=== PATIENT | female | born 1945 | race Caucasian/White ===

== ENCOUNTER 2018-05-26 08:15 | Emergency (ER) | payer MEDICARE ==
[2018-05-26 08:56] VITALS: BP 156/82
--- NOTE | 2018-05-26 10:24 | UC ---
Complaint Female HPI - HPI Summary HPI Summary: uti since 4am - History Of Current Complaint Chief Complaint: UCGU Stated Complaint: URINARY COMPLAINT Time Seen by Provider: 05/26/18 09:07 Hx Obtained From: Patient Onset/Duration: Gradual Onset Timing: Constant Pain Intensity: 0 Aggravating Factor(s): Nothing Alleviating Factor(s): Nothing Associated Signs And Symptoms: Negative: Fever, Back Pain, Vaginal Discharge - Allergies/Home Medications Allergies/Adverse Reactions: Allergies Allergy/AdvReac Type Severity Reaction Status Date / Time No Known Allergies Allergy Verified 05/26/18 08:47 Home Medications: Home Medications Cranberry Conc/C/Bacill Coag [Azo Cranberry 250-30 mg] 2 tab PO ONCE PRN [History Confirmed 05/26/18] Magnesium Oxide [Magnesium] 400 mg PO DAILY 05/26/18 [History Confirmed 05/26/18 ] PMH/Surg Hx/FS Hx/Imm Hx - Additional Past Medical History Additional PMH: Allergies, Anxiety, Dylipidemia, GERD, uti - Surgical History Surgical History: Yes Surgery Procedure, Year, and Place: Right Breast Lumpectomy, 2011 - Family History Known Family History: Positive: Other - [place] - Social History Occupation: Retired Alcohol Use: None Substance Use Type: None Smoking Status (MU): Former Smoker Type: Cigarettes Amount Used/How Often: 1 PPD Length of Time of Smoking/Using Tobacco: 34 Years Have You Smoked in the Last Year: No When Did the Patient Quit Smoking/Using Tobacco: 1996 - Immunization History Most Recent Influenza Vaccination: 2013 Vaccination Up to Date: Yes Review of Systems Constitutional: Negative Skin: Negative Eyes: Negative ENT: Negative Respiratory: Negative Cardiovascular: Negative Gastrointestinal: Negative Genitourinary: Dysuria, Frequency, Urgency Motor: Negative Neurovascular: Negative Musculoskeletal: Negative Neurological: Negative Psychological: Negative Is Patient Immunocompromised?: No All Other Systems Reviewed And Are Negative: Yes Physical Exam Triage Information Reviewed: Yes Appearance: Well-Appearing Vital Signs: Initial Vital Signs Temp 97.3 F 05/26/18 08:49 Pulse 56 05/26/18 08:49 Resp 16 05/26/18 08:49 BP 156/82 05/26/18 08:49 Pulse Ox 100 05/26/18 08:49 Vital Signs Reviewed: Yes Eyes: Positive: Conjunctiva Clear ENT: Positive: Normal ENT inspection Neck: Positive: Supple, Nontender, No Lymphadenopathy Respiratory: Positive: Lungs clear, Normal breath sounds Cardiovascular: Positive: RRR, No Murmur Abdomen Description: Positive: Nontender, No Organomegaly, Soft Bowel Sounds: Positive: Present Musculoskeletal: Positive: ROM Intact Neurological: Positive: Alert Psychological: Positive: Age Appropriate Behavior Skin Exam: Normal Diagnostics - Laboratory Diagnostic Studies Completed/Ordered: no u/a due to AZO. cuture is pending Complaint Female Dx - Differential Dx/Diagnosis Provider Diagnoses: UTI Discharge - Sign-Out/Discharge Documenting (check all that apply): Patient Departure All imaging exams completed and their final reports reviewed: No Studies - Discharge Plan Condition: Stable Disposition: HOME Prescriptions: Sulfamethox/Trimethoprim DS* [Bactrim DS 800/160 TAB*] 1 tab PO BID 7 Days #14 tab Patient Education Materials: Dysuria (ED) Referrals: Pedro Roberto PA [Primary Care Provider] - 7 Days - Billing Disposition and Condition Condition: STABLE Disposition: Home
== END 2018-05-26 10:32 | disposition home or self-care (01) ==
LOC: UCCORT 08:15
DX: N39.0 Urinary tract infection, site not specified (principal); B96.20 Unspecified Escherichia coli [E. coli] as the cause of diseases classified elsewhere; Z87.891 Personal history of nicotine dependence
CPT/HCPCS: 87077; 87086; 87186; 99211; G0463

== ENCOUNTER 2018-10-07 10:32 | Emergency (ER) | payer MEDICARE ==
[2018-10-07 11:18] VITALS: BP 169/98
--- NOTE | 2018-10-07 12:49 | UC ---
Complaint Female HPI - HPI Summary HPI Summary: Patient has frequent UTIs she has symtpoms for the past day. - History Of Current Complaint Chief Complaint: UCGU Stated Complaint: URINARY Time Seen by Provider: 10/07/18 11:23 Hx Obtained From: Patient ?: No Onset/Duration: Sudden Onset, Lasting Days Timing: Constant Severity Initially: Mild Severity Currently: Mild Pain Intensity: 4 Character: Burning Aggravating Factor(s): Urination - Allergies/Home Medications Allergies/Adverse Reactions: Allergies Allergy/AdvReac Type Severity Reaction Status Date / Time No Known Allergies Allergy Verified 10/07/18 11:18 PMH/Surg Hx/FS Hx/Imm Hx Previously Healthy: Yes - Surgical History Surgical History: Yes Surgery Procedure, Year, and Place: Right Breast Lumpectomy, 2012 - Family History Known Family History: Positive: Other - [place] - Social History Alcohol Use: None Substance Use Type: None Smoking Status (MU): Former Smoker Type: Cigarettes Amount Used/How Often: 1 PPD Length of Time of Smoking/Using Tobacco: 34 Years Have You Smoked in the Last Year: No When Did the Patient Quit Smoking/Using Tobacco: 1996 - Immunization History Most Recent Influenza Vaccination: 2013 Vaccination Up to Date: Yes Review of Systems All Other Systems Reviewed And Are Negative: Yes Constitutional: Positive: Negative Skin: Positive: Negative Eyes: Positive: Negative ENT: Positive: Negative Respiratory: Positive: Negative Cardiovascular: Positive: Negative Gastrointestinal: Positive: Negative Genitourinary: Positive: Dysuria Motor: Positive: Negative Neurovascular: Positive: Negative Musculoskeletal: Positive: Negative Neurological: Positive: Negative Psychological: Positive: Negative Is Patient Immunocompromised?: No Physical Exam Triage Information Reviewed: Yes Appearance: Well-Appearing, Well-Nourished, Pain Distress Vital Signs: Initial Vital Signs Temp 97.8 F 10/07/18 11:14 Pulse 91 10/07/18 11:14 Resp 16 10/07/18 11:14 BP 169/98 10/07/18 11:14 Pulse Ox 99 10/07/18 11:14 Vital Signs Reviewed: Yes Eye Exam: Normal ENT Exam: Normal ENT: Positive: Pharyngeal erythema, TMs normal Dental Exam: Normal Neck exam: Normal Neck: Positive: Supple, Nontender, No Lymphadenopathy Respiratory Exam: Normal Respiratory: Positive: Chest non-tender, Lungs clear, Normal breath sounds Cardiovascular Exam: Normal Cardiovascular: Positive: RRR, No Murmur, Pulses Normal Abdominal Exam: Normal Abdomen Description: Positive: Nontender, No Organomegaly, Soft, CVA Tenderness (R) - neg, CVA Tenderness (L) - neg Musculoskeletal Exam: Normal Neurological Exam: Normal Psychological Exam: Normal Skin Exam: Normal Complaint Female Dx - Course Course Of Treatment: hx obtained, exam performed ,meds reviewed, reviewed old chart and microbio lab results. she is seen by a urologist as well duee to frequenty UTI's, does have bladder leakage issue. no back pain or fever. - Differential Dx/Diagnosis Differential Diagnosis/HQI/PQRI: Urinary Tract Infection Provider Diagnosis: UTI (urinary tract infection) Discharge - Sign-Out/Discharge Documenting (check all that apply): Patient Departure All imaging exams completed and their final reports reviewed: No Studies - Discharge Plan Condition: Stable Disposition: HOME Prescriptions: Sulfamethox/Trimethoprim DS* [Bactrim DS 800/160 TAB*] 1 tab PO BID #14 tab Patient Education Materials: Urinary Tract Infection in Women (ED) Referrals: Pedro Roberto PA [Primary Care Provider] - Additional Instructions: 1. take the medication as prescribed. 2. Increase clear fluid intake and follow up with DR Woodward as needed. - Billing Disposition and Condition Condition: STABLE Disposition: Home
== END 2018-10-07 11:44 | disposition home or self-care (01) ==
LOC: UCCORT 10:32
DX: N39.0 Urinary tract infection, site not specified (principal); B96.20 Unspecified Escherichia coli [E. coli] as the cause of diseases classified elsewhere; Z87.891 Personal history of nicotine dependence
CPT/HCPCS: 81003; 87077; 87086; 87186; 99212; G0463

== ENCOUNTER 2019-01-12 10:37 | Emergency (ER) | payer MEDICARE ==
--- OUTSIDE RECORDS SUMMARY | 2019-01-12 11:03 | XMS REPORT | Continuity of Care Document ---
:1945 External Reference #:[id number] Author Name Girish Medina MD Address [address] [place] [address] Care Team Providers Name Role Phone Jeannie Roberto PA Care Team Information Commercial Loan Assistant Unavailable Jeannie Roberto PA Primary Care Physician Unavailable Payers Date Identification Numbers Payment Provider Subscriber Policy Number: [id number] Medicare Krupa Moore PayID: [id number] [address] [place] [address] Policy Number: [id number] [facility] Krupa Moore PayID: [id number] [address] [place] [address] Advance Directives Description No Information Available Problems Active Problems Provider Date Diverticulitis of colon Julien Capps M.D. Onset: 12/27/2013 Family history of malignant neoplasm Julien Capps M.D. Onset: 12/27/2013 of gastrointestinal tract Family History Date Family Member(s) Observation Comments General Breast Cancer Father due to [place] () : (age 80 Years) Father due to Heart Attack Mother due to Cancer () Mother due to Diabetes () Mother due to Hypertension () : (age 79 Years) Mother due to Heart Failure Children 2 sons First Son Alive First Son cataracts First Sister Breast Cancer Social History Type Date Description Comments Sex Unknown Marital Status Lives With Spouse Diet Patient follows no dietary restrictions Occupation Retired Tobacco Use Start: Unknown End: Former Cigarette Smoker Unknown ETOH Use Denies alcohol use Tobacco Use Start: Unknown End: Patient is a former smoked 1 to 1 1/2 Unknown smoker ppd x 30 + years . Quit 22 years ago Recreational Drug Use Never Used Drugs Smoking Status Reviewed: 11/28/18 Patient is a former smoked 1 to 1 1/2 smoker ppd x 30 + years . Quit 22 years ago Exercise Type/Frequency Exercises regularly Allergies, Adverse Reactions, Alerts Description No Known Drug Allergies Medications Active Medications SIG Qnty Indications Ordering Date Provider Ofloxacin 1 drop right eye 1units H25.813 Girish Medina MD 01/02/2019 (Ophthalmic) four times daily 0.3% for 10 days Solution beginning three days prior to the operation Prednisolone Acetate 1 drop right eye 5ml H25.813 Girish Medina MD 2018 1% four times daily Suspension for four weeks; please begin after surgery Ketorolac 1 drop operative 5units H25.813 Girish Medina MD 01/02/2019 Tromethamine eye 4 times daily 0.5% for 2 weeks; Solution please begin 3 days prior to operation Cranberry Fruit sig 1 po bid Unknown Concentrate High Potency [id number] Capsules Venlafaxine HCL ER TK One C PO Daily Unknown 150mg Caps ER 24HR Magnesium 1 by mouth every Unknown 400mg Tablets day Aspir-81 1 by mouth every Unknown 81mg Tablets day DR Ranitidine 150 1 by mouth twice a Unknown Maximum Strength day 150mg Tablets Losartan Potassium 1 by mouth every Unknown day 100mg Tablets Metformin HCL 1 by mouth twice a Unknown 500mg day Tablets Allergy Relief 1 po qhs Unknown 25mg Tablets Atorvastatin Calcium 1 by mouth every Unknown day 40mg Tablets Metoprolol Tartrate 1 po bid 30tabs Unknown 25mg Tablets History Medications Augmentin 1 po bid 30tabs Kadyeimani, 12/19/2013 - 875-125mg Julien Mcgovern, Unknown Tablets M.D. Metronidazole 1 po bid 45tabs Moheimani, 12/19/2013 - 500mg Julien Mcgovern, 12/07/2017 Tablets M.D. Calcium 600 + D po bid Unknown - Unknown [id number] Tablets Paxil 1 po qd 30tabs Unknown - 40mg Tablets 12/07/2017 Flaxseed Oil po qd Unknown - 1000mg Unknown Capsules Omeprazole 1 po qd 90caps Unknown - 20mg Capsules 01/01/2019 DR Alvares A-D 1 tab po q 8hrs. Unknown - 2mg Tablets prn diarrhea Unknown Fortify Daily once daily Unknown - Probiotic 01/01/2019 Capsules Immunizations Description No Information Available Vital Signs Date Vital Result Comment 03/16/2018 3:35pm BP Systolic 132 mmHg BP Diastolic 82 mmHg Body Temperature 97.8 F Heart Rate 74 /min Respiratory Rate 16 /min Height 63 inches 5'3" Weight 142.00 lb BMI (Body Mass Index) 25.2 kg/m2 BSA (Body Surface Area) 1.67 m2 [place] body weight in kilograms 52 kg O2 % BldC Oximetry 99 % 12/07/2017 9:05am BP Systolic 140 mmHg BP Diastolic 88 mmHg Height 63 inches 5'3" Weight 142.00 lb BMI (Body Mass Index) 25.2 kg/m2 BSA (Body Surface Area) 1.67 m2 [place] body weight in kilograms 52 kg 09/08/2015 10:23am BP Systolic 191 mmHg BP Diastolic 89 mmHg Heart Rate 60 /min Height 63 inches 5'3" Weight 152.00 lb BMI (Body Mass Index) 26.9 kg/m2 BSA (Body Surface Area) 1.72 m2 10/25/2013 10:46am BP Systolic Sitting Right Arm 167 mmHg BP Diastolic Sitting Right Arm 99 mmHg Heart Rate 63 /min Respiratory Rate 18 /min Height 63 inches 5'3" Weight 156.00 lb BMI (Body Mass Index) 27.6 kg/m2 BSA (Body Surface Area) 1.74 m2 Results Test Date Facility Test Result H/L Range Note Tissue Pathology 07/15/2016 Off Site Lab Pathology/Surgic non dx al Tissue Laboratory test 09/12/2015 [facility] Breast Biopsy - See Note [address] Permanent Only [place], [place] [id number] [phone] Laboratory test 12/18/2013 [facility] Polyp Colon See Note hp [address] And/Or Rectum [place], [place] [id number] [phone] 1 OPERATION/PROCEDURE US guided bx. right breast x 2 DIAGNOSIS: PART 1: "BREAST, RIGHT, 11:00, 9 CM. FROM NIPPLE, BIOPSY": - FIBROADIPOSE TISSUE ONLY. - NO BREAST TISSUE PRESENT FOR EVALUATION. PART 2: "BREAST, RIGHT, 11:00, BIOPSY": - FIBROADIPOSE TISSUE WITH FAT NECROSIS. - NO BREAST TISSUE PRESENT FOR EVALUATION. /albert 1407 GROSS Received in formalin in two appropriately labeled containers with the patient 's name and accession number. Part 1; The specimen is designated as "RIGHT BREAST LESION @ 11:00 POSITION , 9 CM. FROM NIPPLE" and consists of several pieces of soft lui brown tissue in aggregate measuring 0.8 x 0.6 x 0.4. The entire specimen is submitted in cassette one. Part 2; The specimen is designated as "RIGHT BREAST LESION 11:00 POSITION" and consists of several pieces of soft lui brown tissue in aggregate measuring 1.0 x 0.6 x 0.4 cm. The entire specimen is submitted in cassette two. /albert CLINICAL HISTORY Right breast lumpectomy 2010 PRE OPERATIVE DIAGNOSIS Right breast mass REVIEW CODE CODE: I Signed Electronically signed Olga Lidia FOSS MD 1537 2 OPERATION/PROCEDURE Colonoscopy DIAGNOSIS: "SIGMOID COLON, POLYPECTOMY": EARLY HYPERPLASTIC POLYP. Sidra GROSS "SIGMOID COLON POLYP". The specimen is received in an appropriately labeled container. This contains three rounded lui colored pieces of soft tissue measuring up to 0.3 cm.; filtered and submitted in toto within a single cassette. RADHA/nitin MICROSCOPIC Sections show colonic mucosa with tubular glands lined by goblet type columnar cells with increased mucin production. The glands have an incomplete stellate appearance. PRE OPERATIVE DIAGNOSIS Screening REVIEW CODE CODE: I Signed Electronically signed ARAMIS PRASAD MD 12/19/13 1400 Procedures Date Code Description Status 01/02/2019 95645 Ophthalmic Biometry By Partial Coherence Interferometry Completed W/Intra 11/28/2018 58326 Eye Exam Est Patient Comprehensive Completed 07/21/2018 10565 Eye Exam New Patient Comprehensive Completed 12/23/2017 23769 EGD With Biopsy Completed 09/26/2017 76655897 Mammogram Completed 09/14/2016 46902 Biopsy of breast, open; incisional Completed 09/14/2016 84339 Exc Other Benign Lesion Trunk,Arms Or Legs 0.5CM Or Completed Less 07/15/2016 84708 Biopsy of breast,percutaneous, needle core, not using Completed imaging 03/15/2014 55677 Colonoscopy Completed 03/15/2014 65213 Conscious Sedation For Colonsocopy Completed 12/18/2013 67438 Colonoscopy With Polypectomy Completed 03/01/2011 99199 Anesthesia, Integumentary, Chest Anterior, Unspec Completed 02/25/2011 22309 EKG Interpretation And Report Only Completed Encounters Type Date Location Provider Dx Diagnosis Office Visit 03/16/2018 Surgical Office [place], Z85.3 Personal history 3:30p Christopher H., of malignant M.D. neoplasm of breast Office Visit 01/04/2018 Surgical Office [place], K29.70 Gastritis, 10:45a Christopher H., unspecified, M.D. without bleeding Office Visit 12/07/2017 Surgical Office [place], K21.9 Gastro-esophageal 9:15a Christopher H., reflux disease M.D. without esophagitis Office Visit 03/09/2017 Surgical Office [place], Z85.3 Personal history 2:00p Christopher H., of malignant M.D. neoplasm of breast Office Visit 09/30/2016 Surgical Office [place], N63 Unspecified lump 4:00p Christopher H., in breast M.D. Office Visit 08/26/2016 Surgical Office [place], N63 Unspecified lump 3:45p Christopher H., in breast M.D. Z87.2 Personal history of diseases of the skin, subcu Office Visit 07/29/2016 3:15p Surgical Office [place], N63 Unspecified lump Christopher H., in breast M.D. Office Visit 06/23/2016 3:15p Surgical Office [place] Z85.3 Personal history Christopher H., of malignant M.D. neoplasm of breast N63 Unspecified lump in breast Office Visit 03/17/2016 Surgical [place], Z85.3 Personal history of 3:15p Office Bolaopher H., malignant neoplasm M.D. of breast Office Visit 10/01/2015 Gary Santiago, N63 Unspecified lump in 3:00p Office breast Office Visit 09/08/2015 Gary Santiago, N63 Unspecified lump in 10:00a Office breast Office Visit 02/07/2014 Shawanda Capps, 562.10 Diverticulosis 3:00p Office Christopher H., Colon W/O M.D. Hemorrhage V16.0 History Family Malignant Neoplasm Gastrointestinal Tract Office Visit 12/27/2013 Shawanda Capps 562.11 Diverticulitis 2:30p Office Christopher H., Colon W/O M.D. Hemorrhage V16.0 History Family Malignant Neoplasm Gastrointestinal Tract Office Visit 10/25/2013 10:30a Surgical Office [place], V76.51 Special Julien Mcgovern, Screening For M.D. Malignant Neoplasms Colon Plan of Treatment Future Appointment(s):07/24/2019 8:30 am - Girish Medina MD at Ophthalmology
--- OUTSIDE RECORDS SUMMARY | 2019-01-12 11:03 | XMS REPORT | Continuity of Care Document ---
:1945 External Reference #:[id number] Author Name Girish Medina MD Address [address] [place] [address] Care Team Providers Name Role Phone Jeannie Roberto PA Care Team Information Hypoid Gear Tester Unavailable Jeannie Roberto PA Primary Care Physician Unavailable Payers Date Identification Numbers Payment Provider Subscriber Policy Number: [id number] Medicare Krupa Moore PayID: [id number] [address] [place] [address] Policy Number: [id number] [facility] Krupa Moore PayID: [id number] [address] [place] [address] Advance Directives Description No Information Available Problems Active Problems Provider Date Diverticulitis of colon Julien Capps M.D. Onset: 12/27/2013 Family history of malignant neoplasm Julien Capps M.D. Onset: 12/27/2013 of gastrointestinal tract Family History Date Family Member(s) Observation Comments General Breast Cancer Father due to [place] () : (age 80 Years) Father due [...] Use Never Used Drugs Smoking Status Reviewed: 01/11/19 Patient is a former smoked 1 to [...] 1 po bid Unknown Concentrate High Potency [id number] Capsules Venlafaxine HCL ER TK One C [...] + D po bid Unknown - Unknown [id number] Tablets Paxil 1 po qd 30tabs Unknown [...] kg/m2 BSA (Body Surface Area) 1.67 m2 [place] body weight in kilograms 52 kg O2 % BldC Oximetry 99 % 12/07/2017 9:05am BP Systolic 140 mmHg BP Diastolic 88 mmHg Height 63 inches 5'3" Weight 142.00 lb BMI (Body Mass Index) 25.2 kg/m2 BSA (Body Surface Area) 1.67 m2 [place] body weight in kilograms 52 kg 09/08/2015 [...] non dx al Tissue Laboratory test 09/12/2015 [facility] Breast Biopsy - See Note [address] Permanent Only [place], [place] [address] [phone] Laboratory test 12/18/2013 [facility] Polyp Colon See Note hp [address] And/Or Rectum [place], [place] [id number] [phone] 1 OPERATION/PROCEDURE US guided bx. right breast [...] 1400 Procedures Date Code Description Status 01/02/2019 81930 Ophthalmic Biometry By Partial Coherence Interferometry Completed W/Intra 11/28/2018 26026 Eye Exam Est Patient Comprehensive Completed 07/21/2018 65062 Eye Exam New Patient Comprehensive Completed 12/23/2017 32736 EGD With Biopsy Completed 09/26/2017 68900811 Mammogram Completed 09/14/2016 11488 Biopsy of breast, open; incisional Completed 09/14/2016 62778 Exc Other Benign Lesion Trunk,Arms Or Legs 0.5CM Or Completed Less 07/15/2016 32189 Biopsy of breast,percutaneous, needle core, not using Completed imaging 03/15/2014 99177 Colonoscopy Completed 03/15/2014 70701 Conscious Sedation For Colonsocopy Completed 12/18/2013 69732 Colonoscopy With Polypectomy Completed 03/01/2011 72662 Anesthesia, Integumentary, Chest Anterior, Unspec Completed 02/25/2011 24631 EKG Interpretation And Report Only Completed Encounters [...] in 3:00p Office breast Office Visit 09/08/2015 [place], N63 Unspecified lump in 10:00a Office breast Office Visit 02/07/2014 Shawanda Capps, 562.10 Diverticulosis 3:00p Office Christopher H., Colon W/O M.D. Hemorrhage V16.0 History Family Malignant Neoplasm Gastrointestinal Tract Office Visit 12/27/2013 Shawanda Capps 562.11 Diverticulitis 2:30p Office Christopher H., Colon W/O M.D. Hemorrhage V16.0 History Family Malignant Neoplasm Gastrointestinal Tract Office Visit 10/25/2013 10:30a Surgical Office [place] V76.51 Special Julien Mcgovern, Screening For M.D. Malignant Neoplasms Colon Plan of Treatment Future Appointment(s):01/18/2019 11:15 am - Girish Medina MD at [facility]/ 29/2019 8:30 am - Girish Medina MD at [facility]94/21/2018 - Julien Capps M.D.Z85.3 Personal history of malignant neoplasm of breastComments:Remmen ultrasound.Follow-up in a year with clinical examination then. Questions addressed. She is reports she satisfied with this review and reports she will call or return if there are difficulties,developments, concerns.
--- OUTSIDE RECORDS SUMMARY | 2019-01-12 11:03 | XMS REPORT | Continuity of Care Document ---
:1945 External Reference #:[id number] Author Name Girish Medina MD Address [address] [place] [address] Care Team Providers Name Role Phone Jeannie Roberto PA Care Team Information Police Booking Officer Unavailable Jeannie Roberto PA Primary Care Physician Unavailable Payers Date Identification Numbers Payment Provider Subscriber Policy Number: [id number] Medicare Krupa Moore PayID: [id number] [address] [place] [address] Policy Number: [id number] [facility] Krupa Moore PayID: [id number] [address] [place] [address] Advance Directives Description No Information Available Problems Date Description Provider Status Onset: 12/27/2013 Diverticulitis of colon Julien Capps Active M.D. Onset: 12/27/2013 Family history of malignant Julien Capps Active neoplasm of gastrointestinal M.D. tract Family History Date Family Member(s) Observation Comments General Breast Cancer Father due to [place] () : (age 80 Years) Father due [...] Alerts Description No Known Drug Allergies Medications Medication Date Status Form Strength Qnty SIG Indications Ordering Provider Ofloxacin 01/03/20 Active Solution 0.3% 1unit 1 drop H25.813 Adam, (Ophthalmic) 19 s right MD Girish eye four times daily for 10 days beginnin g three days prior to the operatio n Prednisolone 01/03/20 Active Suspension 1% 5ml 1 drop H25.813 Adam Acetate 19 right MD Girish eye four times daily for four weeks; please begin after surgery Ketorolac 01/03/20 Active Solution 0.5% 5unit 1 drop H25.813 Adam Tromethamine 19 s pernellv MD Girish e eye 4 times daily for 2 weeks; please begin 3 days prior to operatio n Metoprolol Active Tablets 25mg 30tab 1 po bid Unknown Tartrate 00 s Atorvastatin Active Tablets 40mg 1 by Unknown Calcium 00 mouth every day Allergy Relief Active Tablets 25mg 1 po qhs Unknown 00 Metformin HCL Active Tablets 500mg 1 by Unknown 00 mouth twice a day Losartan Active Tablets 100mg 1 by Unknown Potassium 00 mouth every day Ranitidine 150 Active Tablets 150mg 1 by Unknown Maximum 00 mouth Strength twice a day Aspir-[address] 81mg 1 by Unknown 00 mouth every day Magnesium Active Tablets 400mg 1 by Unknown 00 mouth every day Venlafaxine Active Caps ER 150mg TK One C Unknown HCL ER 00 24HR PO Daily Cranberry Active Capsules [id number] sig 1 po Unknown Fruit 00 bid Concentrate High Potency Augmentin 12/20/19 Hx Tablets 875-125mg 30tab 1 po bid Nga Capps M.D. Metronidazole 12/20/19 Hx Tablets 500mg 45tab 1 po bid Nga Capps s Julien 12/08/19 Willie Mcgovern 18 Calcium 600 + Hx Tablets 600-400mg po bid Unknown D 00 - -Unit Unknown Paxil Hx Tablets 40mg 30tab 1 po qd Unknown 00 - s 12/08/19 18 Flaxseed Oil Hx Capsules 1000mg po qd Unknown 00 - Unknown Omeprazole Hx Capsules 20mg 90cap 1 po qd Unknown 00 - DR s 01/02/20 19 Imodium A-D Hx Tablets 2mg 1 tab po Unknown 00 - q 8hrs. Unknown prn diarrhea Fortify Daily Hx Capsules once Unknown Probiotic 00 - daily 01/02/20 19 Immunizations Description No Information Available Vital Signs Date Vital Result Comment 03/16/2018 3:35pm BP Systolic 132 mmHg BP Diastolic 82 mmHg Body Temperature 97.8 F Heart Rate 74 /min Respiratory Rate 16 /min Height 63 inches 5'3" Weight 142.00 lb BMI (Body Mass Index) 25.2 kg/m2 BSA (Body Surface Area) 1.67 m2 [place] body weight in kilograms 52 kg O2 % BldC Oximetry 99 % 12/07/2017 9:05am BP Systolic 140 mmHg BP Diastolic 88 mmHg Height 63 inches 5'3" Weight 142.00 lb BMI (Body Mass Index) 25.2 kg/m2 BSA (Body Surface Area) 1.67 m2 [place] body weight in kilograms 52 kg 09/08/2015 [...] non dx al Tissue Laboratory test 09/12/2015 [facility] Breast Biopsy - See Note [address] [place] [address] [phone] Laboratory test 12/18/2013 [facility] Colon See Note hp [address] [place] [address] [phone] 1 OPERATION/PROCEDURE US guided bx. right breast x 2 DIAGNOSIS: PART 1: "BREAST, RIGHT, 11:00, 9 CM. FROM NIPPLE, BIOPSY": - FIBROADIPOSE TISSUE ONLY. - NO BREAST TISSUE PRESENT FOR EVALUATION. PART 2: "BREAST, RIGHT, 11:00, BIOPSY": - FIBROADIPOSE TISSUE WITH FAT NECROSIS. - NO BREAST TISSUE PRESENT FOR EVALUATION. EP/albert 1407 GROSS Received in formalin in two [...] entire specimen is submitted in cassette two. MH/albert CLINICAL HISTORY Right breast lumpectomy 2010 PRE [...] submitted in toto within a single cassette. Sidra MICROSCOPIC Sections show colonic mucosa with tubular glands lined by goblet type columnar cells with increased mucin production. The glands have an incomplete stellate appearance. PRE OPERATIVE DIAGNOSIS Screening REVIEW CODE CODE: I Signed Electronically signed ARAMIS PRASAD MD 12/19/13 1400 Procedures Date Code Description Status 01/02/2019 20837 Ophthalmic Biometry By Partial Coherence Interferometry Completed W/Intra 11/28/2018 03099 Eye Exam Est Patient Comprehensive Completed 07/21/2018 66730 Eye Exam New Patient Comprehensive Completed 12/23/2017 40969 EGD With Biopsy Completed 09/26/2017 [id number] Mammogram Completed 09/14/2016 32542 Biopsy of breast, open; incisional Completed 09/14/2016 37814 Exc Other Benign Lesion Trunk,Arms Or Legs 0.5CM Or Completed Less 07/15/2016 91436 Biopsy of breast,percutaneous, needle core, not using Completed imaging 03/15/2014 11175 Colonoscopy Completed 03/15/2014 09125 Conscious Sedation For Colonsocopy Completed 12/18/2013 74352 Colonoscopy With Polypectomy Completed 03/01/2011 05154 Anesthesia, Integumentary, Chest Anterior, Unspec Completed 02/25/2011 56109 EKG Interpretation And Report Only Completed Encounters Type Date Location Provider Dx Diagnosis Office Visit 03/16/2018 Surgical Office Shiela Capps85.3 Personal history 3:30p Bolaopher H., of malignant M.D. neoplasm of breast Office Visit 01/04/2018 Surgical Office Deni Capps9.70 Gastritis, 10:45a Bolaopher H., unspecified, M.D. without bleeding Office Visit 12/07/2017 Surgical Office Génesis K21.9 Gastro-esophageal 9:15a Rejier H., reflux disease M.D. without esophagitis Office Visit 03/09/2017 Surgical Office Génesis Z85.3 Personal history 2:00p Bolaopher H., of malignant M.D. neoplasm of breast Office Visit 09/30/2016 Surgical Office Chantel Capps3 Unspecified lump 4:00p Christopher H., in breast M.D. Office Visit 08/26/2016 Surgical Office Génesis N63 Unspecified lump 3:45p Christopher H., in breast M.D. Z87.2 Personal history of diseases of the skin, subcu Office Visit 07/29/2016 3:15p Surgical Office Génesis N63 Unspecified lump Christopher H., in breast M.D. Office Visit 06/23/2016 3:15p Surgical Office Génesis Z85.3 Personal history Christopher H., of malignant M.D. neoplasm of breast N63 Unspecified lump in breast Office Visit 03/17/2016 Shawanda Capps Z85.3 Personal history of 3:15p Office Bolaopher H., malignant neoplasm M.D. of breast Office Visit 10/01/2015 Gary Santiago, N63 Unspecified lump in 3:00p Office breast Office Visit 09/08/2015 Gary Santiago, N63 Unspecified lump in 10:00a Office breast Office Visit 02/07/2014 Shawanda Capps, 562.10 Diverticulosis 3:00p Office Julien Mcgovern, Colon W/O M.D. Hemorrhage V16.0 History Family Malignant Neoplasm Gastrointestinal Tract Office Visit 12/27/2013 Surgical [facility], 562.11 Diverticulitis 2:30p Office Julien Mcgovern, Colon W/O M.D. Hemorrhage V16.0 History Family Malignant Neoplasm Gastrointestinal Tract Office Visit 10/25/2013 10:30a Surgical Office Génesis, V76.51 Special Julien Mcgovern, Screening For M.D. Malignant Neoplasms Colon Plan of Treatment Future Appointment(s):01/10/2019 11:00 am - Girish Medina MD at Operating Room 8:30 am - Girish Medina MD at Ophthalmology
[2019-01-12 11:15] VITALS: BP 148/78
--- NOTE | 2019-01-12 11:25 | UC ---
UC General HPI - HPI Summary HPI Summary: Pleasant 73 yo female c/o urinary freq / urg / dysuria. No fever / chills. Has had several urine infections over the last several months, usually + e coli. Took otc azo x 2 po this am. No rash. No GI issues. - History of Current Complaint Chief Complaint: UCGU Stated Complaint: URINARY Time Seen by Provider: 01/12/19 11:24 Hx Obtained From: Patient Pain Intensity: 5 - Allergy/Home Medications Allergies/Adverse Reactions: Allergies Allergy/AdvReac Type Severity Reaction Status Date / Time No Known Allergies Allergy Verified 01/12/19 11:13 Home Medications: Home Medications Atorvastatin* [Lipitor*] 40 mg PO 1700 01/12/19 [History Confirmed 01/12/19] Cataract Eye Drops? 1 drop BOTH EYES DAILY 01/12/19 [History Confirmed 01/12/19] Cetirizine HCl [Allergy Relief] 10 mg PO DAILY 01/12/19 [History Confirmed 01/12] Losartan Potassium 100 mg PO DAILY 01/12/19 [History Confirmed 01/12/19] Metformin ER (NF) 500 mg PO BID 01/12/19 [History Confirmed 01/12/19] Venlafaxine EXT RELEASE CAP* [Effexor Xr CAP*] 150 mg PO DAILY 01/12/19 [ History Confirmed 01/12/19] PMH/Surg Hx/FS Hx/Imm Hx Previously Healthy: Yes - see hpi Endocrine History: Diabetes - Surgical History Surgical History: Yes Surgery Procedure, Year, and Place: Right Breast Lumpectomy, 2012 - Family History Known Family History: Positive: Other - [place] - Social History Alcohol Use: None Substance Use Type: None Smoking Status (MU): Former Smoker Type: Cigarettes Amount Used/How Often: 1 PPD Length of Time of Smoking/Using Tobacco: 34 Years Have You Smoked in the Last Year: No When Did the Patient Quit Smoking/Using Tobacco: 1996 - Immunization History Most Recent Influenza Vaccination: 2013 Vaccination Up to Date: Yes Review of Systems All Other Systems Reviewed And Are Negative: Yes Constitutional: Positive: Negative Skin: Positive: Negative Eyes: Positive: Negative ENT: Positive: Negative Respiratory: Positive: Negative Cardiovascular: Positive: Negative Gastrointestinal: Positive: Other - see hpi Genitourinary: Positive: Other - see hpi Motor: Positive: Negative Neurovascular: Positive: Negative Musculoskeletal: Positive: Negative Neurological: Positive: Negative Psychological: Positive: Negative Is Patient Immunocompromised?: No Physical Exam Triage Information Reviewed: Yes Appearance: Well-Appearing, Well-Nourished Vital Signs: Initial Vital Signs Temp 97.1 F 01/12/19 11:06 Pulse 63 01/12/19 11:06 Resp 16 01/12/19 11:06 BP 148/78 01/12/19 11:06 Pulse Ox 99 01/12/19 11:06 Vital Signs Reviewed: Yes Eye Exam: Normal ENT Exam: Normal Neck exam: Normal Respiratory Exam: Normal Respiratory: Positive: Chest non-tender, Lungs clear, Normal breath sounds, No respiratory distress, No accessory muscle use Cardiovascular Exam: Normal Cardiovascular: Positive: RRR, Pulses Normal, Brisk Capillary Refill Abdominal Exam: Normal - normal except expected tenderness over bladder region. no r/g. no cvat Bowel Sounds: Positive: Present Musculoskeletal Exam: Normal - gait steady Neurological Exam: Normal - grossly nonfocal Psychological Exam: Normal - conversing easily and appropriately Skin Exam: Normal - no visible or reported rash Course/Dx - Course Course Of Treatment: Reviewed coa / tx plan. Cx sent. No dip d/t recent azo. I reviewed Reacción urine cultures as available Questions as posed answered to the best of my ability. - Diagnoses Provider Diagnosis: UTI (urinary tract infection) Discharge - Sign-Out/Discharge Documenting (check all that apply): Patient Departure All imaging exams completed and their final reports reviewed: No Studies - Discharge Plan Condition: Stable Disposition: HOME Prescriptions: ceFUROXime TAB(*) [Ceftin TAB 250 MG(*)] 500 mg PO BID 10 Days #20 tab Patient Education Materials: Urinary Tract Infection in Women (ED) Referrals: Pedro Roberto PA [Primary Care Provider] - Additional Instructions: Please follow up with your primary care physician, per routine. Suggest recheck in the next 1-2 weeks, if possible, given recent history of urine infections. Drink plenty of fluids. Consider probiotics, especially while taking antibiotics. Seek medical attention for worse or new problems. You have a urine culture in the lab. - Billing Disposition and Condition Condition: STABLE Disposition: Home
--- NOTE | 2019-01-14 07:23 | UC ---
- Progress Note Progress Note: Final urine culture report: No growth Patient is on Ceftin RN to call the patient advises stopping the medication as she does not have UTI. If she still having symptoms, she should follow-up with her primary care doctor or can come here for reevaluation. Course/Dx - Diagnoses Provider Diagnoses: UTI (urinary tract infection) Discharge - Sign-Out/Discharge Documenting (check all that apply): Post-Discharge Follow Up All imaging exams completed and their final reports reviewed: No Studies - Discharge Plan Condition: Stable Disposition: HOME Prescriptions: ceFUROXime TAB(*) [Ceftin TAB 250 MG(*)] 500 mg PO BID 10 Days #20 tab Patient Education Materials: Urinary Tract Infection in Women (ED) Referrals: Pedro Roberto PA [Primary Care Provider] - Additional Instructions: Please follow up with your primary care physician, per routine. Suggest recheck in the next 1-2 weeks, if possible, given recent history of urine infections. Drink plenty of fluids. Consider probiotics, especially while taking antibiotics. Seek medical attention for worse or new problems. You have a urine culture in the lab. - Billing Disposition and Condition Condition: STABLE Disposition: Home
== END 2019-01-12 11:48 | disposition home or self-care (01) ==
LOC: UCCORT 10:37
DX: N39.0 Urinary tract infection, site not specified (principal); E11.9 Type 2 diabetes mellitus without complications; Z79.84 Long term (current) use of oral hypoglycemic drugs; Z87.891 Personal history of nicotine dependence
CPT/HCPCS: 87086; 99212; G0463

== ENCOUNTER 2019-07-30 13:48 | Emergency (ER) | payer MEDICARE ==
[2019-07-30 14:40] VITALS: BP 125/68
--- NOTE | 2019-07-30 14:51 | UC ---
Complaint Female HPI - HPI Summary HPI Summary: 74-year-old female presents with complaints of dysuria, frequency, and urgency for the past 6 days. States has history of frequent urinary tract infections. Denies fever, chills, abdominal pain, back or flank pain, nausea, vomiting, hematuria, abnormal bleeding, or vaginal discharge. - History Of Current Complaint Chief Complaint: UCGU Stated Complaint: URINARY COMPLAINT Time Seen by Provider: 07/30/19 14:36 Hx Obtained From: Patient Pain Intensity: 0 - Allergies/Home Medications Allergies/Adverse Reactions: Allergies Allergy/AdvReac Type Severity Reaction Status Date / Time No Known Allergies Allergy Verified 07/30/19 14:40 Home Medications: Home Medications Phenazopyridine TAB* [Pyridium 100 mg TAB*] 1 tab PO TID PRN 07/30/19 [History Confirmed 07/30/19] PMH/Surg Hx/FS Hx/Imm Hx Endocrine History: Diabetes, Dyslipidemia Cardiovascular History: Hypertension GI/ History: Gastroesophageal Reflux Psychological History: Depression - Surgical History Surgical History: Yes Surgery Procedure, Year, and Place: Right Breast Lumpectomy, 2012 - Family History Known Family History: Positive: Other - [place] - Social History Occupation: Retired Lives: With Family Alcohol Use: None Substance Use Type: None Smoking Status (MU): Former Smoker Type: Cigarettes Amount Used/How Often: 1 PPD Length of Time of Smoking/Using Tobacco: 34 Years Have You Smoked in the Last Year: No When Did the Patient Quit Smoking/Using Tobacco: 1996 - Immunization History Most Recent Influenza Vaccination: 2013 Vaccination Up to Date: Yes Review of Systems All Other Systems Reviewed And Are Negative: Yes Constitutional: Negative: Fever, Chills Respiratory: Positive: Negative Cardiovascular: Positive: Negative Gastrointestinal: Negative: Abdominal Pain, Vomiting, Nausea Genitourinary: Positive: Dysuria, Urgency. Negative: Hematuria, Vaginal/Penile Discharge, Abnormal Bleeding Musculoskeletal: Positive: Negative Neurological: Positive: Negative Is Patient Immunocompromised?: No Physical Exam - Summary Physical Exam Summary: GENERAL APPEARANCE: Well developed, well nourished, alert and cooperative, and appears to be in no acute distress. CARDIAC: Normal S1 and S2. No S3, S4 or murmurs. Rhythm is regular. There is no peripheral edema, cyanosis or pallor. Extremities are warm and well perfused. Capillary refill is less than 2 seconds. Peripheral pulses intact. LUNGS: Clear to auscultation without rales, rhonchi, wheezing or diminished breath sounds. ABDOMEN: Positive bowel sounds. Soft, nondistended, nontender. No guarding or rebound. No masses or hepatosplenomegally. No CVA tenderness. MUSKULOSKELETAL: ROM intact to all extremities. No joint erythema or tenderness. Normal muscular development. Normal gait. SKIN: Skin normal color, texture and turgor with no lesions or eruptions. Triage Information Reviewed: Yes Vital Signs: Initial Vital Signs Temp 98 F 07/30/19 14:31 Pulse 67 07/30/19 14:31 Resp 20 07/30/19 14:31 BP 125/68 07/30/19 14:31 Pulse Ox 98 07/30/19 14:31 Vital Signs Reviewed: Yes Complaint Female Dx - Course Course Of Treatment: 74-year-old female presents with complaints of dysuria, frequency, and urgency for the past 6 days. States has history of frequent urinary tract infections. Denies fever, chills, abdominal pain, back or flank pain, nausea, vomiting, hematuria, abnormal bleeding, or vaginal discharge. Afebrile. Vital signs stable. Patient's exam was overall unremarkable. Patient was taking Pyridium and therefore we were unable to perform a [id number] urinalysis in the clinic. I will treat her empirically for urinary tract infection based on her symptoms pending urine culture results. She is to continue to take the Pyridium as directed for the next 2 days to help with the discomfort. She is to follow-up with her primary care provider in 3-5 days if symptoms are not improving. Anticipatory guidance warning symptoms reviewed with the patient. Verbalizes understanding and agrees with plan of care. - Differential Dx/Diagnosis Differential Diagnosis/HQI/PQRI: Urinary Tract Infection, Other - vulvovaginal atrophy Provider Diagnosis: Dysuria Discharge ED - Sign-Out/Discharge Documenting (check all that apply): Patient Departure All imaging exams completed and their final reports reviewed: No Studies - Discharge Plan Condition: Stable Disposition: HOME Prescriptions: Nitrofurantoin Monohyd/M-Cryst [Macrobid 100 mg Capsule] 100 mg PO BID #10 cap Patient Education Materials: Dysuria (ED) Referrals: Pedro Roberto PA [Primary Care Provider] - 3 Days Additional Instructions: Because you were taking Pyridium we were unable to perform a urinalysis today. We will start you on an antibiotic to treat for a possible infection. We will also send the urine for culture today to see if any bacteria grow out and make sure the antibiotic you were prescribed is appropriate to treat the infection. It will take 48-72 hours to get these results. Start Macrobid 1 tab twice a day for 5 days. You may continue to take Pyridium 1 tablet every 8 hours for next 2 days to help with the discomfort. This medication will turn your urine an orange color. Drink plenty of fluids. To help prevent urinary tract infections: 1) Be sure to wipe from front to back. 2) Urinate immediately after any sexual intercourse. 3) Avoid taking bubble baths. Follow up with your primary care provider in 3-5 days if symptoms persist. Seek immediate medical attention in the emergency room if you develop fever greater than 100.5 F, have severe abdominal pain, persistent vomiting, or any worsening of symptoms. - Billing Disposition and Condition Condition: STABLE Disposition: Home
== END 2019-07-30 15:09 | disposition home or self-care (01) ==
LOC: UCCORT 13:48
DX: R30.0 Dysuria (principal); R35.0 Frequency of micturition; R39.15 Urgency of urination; E11.9 Type 2 diabetes mellitus without complications; I10 Essential (primary) hypertension; Z87.891 Personal history of nicotine dependence
CPT/HCPCS: 87077; 87086; 87186; 99212; G0463

== ENCOUNTER 2019-09-22 12:06 | Emergency (ER) | payer MEDICARE ==
[2019-09-22 13:34] VITALS: BP 156/66
--- NOTE | 2019-09-22 13:59 | UC ---
Complaint Female HPI - HPI Summary HPI Summary: 74 year old female with c/o urinary symptoms since . patient staets + frequency, urgency, burning with urination. Tried pyridium, but did not get rid of symptoms. no flank pain, no fever, chills. no blood in urine - History Of Current Complaint Chief Complaint: UCGU Stated Complaint: URINARY Time Seen by Provider: 09/22/19 13:27 Hx Obtained From: Patient ?: No Onset/Duration: Sudden Onset, Lasting Days - 2 Timing: Constant Severity Currently: None Pain Intensity: 0 Pain Scale Used: 0-10 Numeric Character: Dull, Burning Associated Signs And Symptoms: Negative: Fever, Back Pain, Vaginal Bleeding/ Discharge, Vaginal Discharge, Nausea, Vomiting(# Of Episodes =), Genital Swelling, Genital Blisters - Allergies/Home Medications Allergies/Adverse Reactions: Allergies Allergy/AdvReac Type Severity Reaction Status Date / Time No Known Allergies Allergy Verified 09/22/19 13:28 Home Medications: Home Medications Phenazopyridine HCl [Pyridium] 200 mg PO ONCE 09/22/19 [History Confirmed ] PMH/Surg Hx/FS Hx/Imm Hx Previously Healthy: Yes - Surgical History Surgical History: Yes Surgery Procedure, Year, and Place: Right Breast Lumpectomy, 2011 - Family History Known Family History: Positive: Other - [place], Non-Contributory - Social History Occupation: Retired Alcohol Use: None Substance Use Type: None Smoking Status (MU): Former Smoker Type: Cigarettes Amount Used/How Often: 1 PPD Length of Time of Smoking/Using Tobacco: 34 Years Have You Smoked in the Last Year: No When Did the Patient Quit Smoking/Using Tobacco: 1996 - Immunization History Most Recent Influenza Vaccination: 2013 Vaccination Up to Date: Yes Review of Systems All Other Systems Reviewed And Are Negative: Yes Constitutional: Negative: Fever, Chills, Fatigue Genitourinary: Positive: Dysuria, Frequency, Urgency Physical Exam Triage Information Reviewed: Yes Appearance: Well-Appearing, No Pain Distress, Well-Nourished Vital Signs: Initial Vital Signs Temp 97.9 F 09/22/19 13:29 Pulse 95 09/22/19 13:29 Resp 16 09/22/19 13:29 BP 156/66 09/22/19 13:29 Pulse Ox 97 09/22/19 13:29 Vital Signs Reviewed: Yes Eyes: Positive: Conjunctiva Clear Abdomen Description: Positive: Nontender, No Organomegaly, Soft. Negative: Bruit, CVA Tenderness (R), CVA Tenderness (L), Distended, Guarding, Splenomegaly Musculoskeletal Exam: Normal Musculoskeletal: Positive: ROM Intact Neurological Exam: Normal Neurological: Positive: Alert Psychological Exam: Normal Skin Exam: Normal Complaint Female Dx - Course Course Of Treatment: UA + for UTI, cultures sent - Increase fluid intake - Pyridum or tylenol as needed for symptoms. - Antibiotics as directed - Follow up with primary physician for repeat urine cultures in 1 week to ensure infection is gone - REturn with back pain, fever, chills, increased pain, difficulty with urination - Differential Dx/Diagnosis Differential Diagnosis/HQI/PQRI: Urinary Tract Infection Provider Diagnosis: UTI (urinary tract infection) Discharge ED - Sign-Out/Discharge Documenting (check all that apply): Patient Departure All imaging exams completed and their final reports reviewed: No Studies - Discharge Plan Condition: Good Disposition: HOME Prescriptions: Amoxicillin/Clavulanate TAB* [Augmentin TAB 875*] 875 mg PO BID #14 tab Phenazopyridine TAB* [Pyridium 100 mg TAB*] 100 mg PO TID PRN #15 tab PRN Reason: painful urination Patient Education Materials: Urinary Tract Infection in Women (ED) Referrals: Pedro Roberto PA [Primary Care Provider] - Additional Instructions: - Increase fluid intake - Pyridum or tylenol as needed for symptoms. - Antibiotics as directed - Follow up with primary physician for repeat urine cultures in 1 week to ensure infection is gone - REturn with back pain, fever, chills, increased pain, difficulty with urination - Billing Disposition and Condition Condition: GOOD Disposition: Home - Attestation Statements Provider Attestation: This patient was not seen by me I was available for consult Chart reviewed NORM
--- NOTE | 2019-09-25 09:25 | UC ---
- Progress Note Progress Note: Urine culture did not show a urinary tract infection. Recommend discontinuing antibiotics If symptoms have persisted recommend follow up with PCP or recommend seeing a urologist. Course/Dx - Diagnoses Provider Diagnoses: UTI (urinary tract infection) Discharge ED - Sign-Out/Discharge Documenting (check all that apply): Post-Discharge Follow Up All imaging exams completed and their final reports reviewed: No Studies - Discharge Plan Condition: Good Disposition: HOME Prescriptions: Amoxicillin/Clavulanate TAB* [Augmentin TAB 875*] 875 mg PO BID #14 tab Phenazopyridine TAB* [Pyridium 100 mg TAB*] 100 mg PO TID PRN #15 tab PRN Reason: painful urination Patient Education Materials: Urinary Tract Infection in Women (ED) Referrals: Pedro Roberto PA [Primary Care Provider] - Additional Instructions: - Increase fluid intake - Pyridum or tylenol as needed for symptoms. - Antibiotics as directed - Follow up with primary physician for repeat urine cultures in 1 week to ensure infection is gone - REturn with back pain, fever, chills, increased pain, difficulty with urination - Billing Disposition and Condition Condition: GOOD Disposition: Home
== END 2019-09-22 14:04 | disposition home or self-care (01) ==
LOC: UCCORT 12:06
DX: N39.0 Urinary tract infection, site not specified (principal); Z87.891 Personal history of nicotine dependence
CPT/HCPCS: 81003; 87086; 99212; G0463